=== PATIENT | female | born 1965 | race Caucasian/White ===

== ENCOUNTER 2017-06-24 14:40 | Emergency (ER) | payer OTHER ==
[~2017-06-24] VITALS: Ht 160 cm; Wt 63.6 kg
[~2017-06-24 14:40] MED LIST: MO4B PO; NEOM28.36 TP
[2017-06-24] MEDS ORDERED: LEVO25TA9 PO (15:10)
[2017-06-24] MEDS ORDERED: KETOROLAC TROMETHAMINE 30 MG/ML VIAL IM ONE (16:45)
[2017-06-24 17:24] LABS: BASOPHILS # (AUTO) 0.06 K/uL (0.00-0.20); BASOPHILS % (AUTO) 0.6 % (0.0-2.0); EOSINOPHILS # (AUTO) 0.04 K/uL (0.00-0.70); EOSINOPHILS % (AUTO) 0.45 % (1.0-6.0); HEMATOCRIT 38.4 % (36-46); LYMPHOCYTES # (AUTO) 2.2 K/uL (1.0-4.8); LYMPHOCYTES % (AUTO) 22.2 % (22.0-44.0); MEAN CORPUSCULAR HEMOGLOBIN 31.6 pg (26.0-34.0); MEAN CORPUSCULAR VOLUME 93 fL (80-100); MONOCYTES # (AUTO) 0.9 K/uL (0.1-1.0); MONOCYTES % (AUTO) 8.7 % (2.0-9.0); NEUTROPHILS # (AUTO) 6.7 K/uL (1.8-7.7); NEUTROPHILS % (AUTO) 68.1 % (40.0-70.0); PLATELET COUNT (AUTO) 279 K/uL (150-450); RED BLOOD CELL COUNT(AUTO) 4.13 MIL/uL (4.00-5.20); RED CELL DISTRIBUTION WIDTH 13.4 % (11.5-14.5); WHITE BLOOD COUNT (AUTO) 9.9 K/uL (4.5-11.0)
[2017-06-24 17:30] LABS: ANION GAP 8 mmol/L (8-16); CALCIUM, TOTAL 9.1 mg/dL (8.8-10.5); CARBON DIOXIDE 27 mmol/L (22-29); CHLORIDE 103 mmol/L (98-107); CREATININE 0.66 mg/dL (0.60-1.30); GLOMERULAR FILTR. RATE CALC > 60 mL/min (>60); POTASSIUM 3.7 mmol/L (3.5-5.1); SODIUM SERUM 138 mmol/L (136-145); UREA NITROGEN, BLOOD 13 mg/dL (7-18)
[2017-06-24 17:37] LABS: ALANINE AMINOTRANSFERASE 16 U/L (12-78); ALBUMIN 3.6 g/dL (3.4-5.0); ASPARTATE AMINOTRANSFERASE 18 U/L (15-37); BILIRUBIN,TOTAL 0.3 mg/dL (0.1-1.0); TOTAL PROTEIN, SERUM 7.5 g/dL (6.4-8.2)
[2017-06-24 17:52] VITALS: BP 118/63
== END 2017-06-24 18:36 | disposition home or self-care (01) ==
LOC: EMS 14:40
DX: M79.1 Myalgia (principal); M19.90 Unspecified osteoarthritis, unspecified site
CPT/HCPCS: 36415; 80053; 85025; 96372; 99284; J1885

== ENCOUNTER 2020-10-16 10:09 | Emergency (ER) | payer OTHER ==
[~2020-10-16] VITALS: Ht 165.1 cm; Wt 70.5 kg
[~2020-10-16 10:09] MED LIST changes: +IBUP-2276 PO; +LEVO25TA9 PO; -MO4B PO; -NEOM28.36 TP
[2020-10-16] MEDS ORDERED: SODIUM CHLORIDE 0.9% 1,000 ML IV ONE (11:15)
[2020-10-16 11:35] LABS: BASOPHILS % (AUTO) 0.4 % (0.0-2.0); EOSINOPHILS % (AUTO) 0.5 % (1.0-6.0); HEMATOCRIT 39.5 % (36-46); HEMOGLOBIN 13.4 g/dL (12.0-16.0); LYMPHOCYTES # (AUTO) 1.5 K/uL (1.0-4.8); LYMPHOCYTES % (AUTO) 20.8 % (22.0-44.0); MEAN CORPUSCULAR HEMOGLOBIN 31.6 pg (26.0-34.0); MEAN CORPUSCULAR HGB CONC 33.9 G/dL (31.0-37.0); MEAN CORPUSCULAR VOLUME 93 fL (80-100); MONOCYTES # (AUTO) 0.7 K/uL (0.1-1.0); MONOCYTES % (AUTO) 9.9 % (2.0-9.0); NEUTROPHILS % (AUTO) 68.4 % (40.0-70.0); PLATELET COUNT (AUTO) 334 K/uL (150-450); RED BLOOD CELL COUNT(AUTO) 4.23 MIL/uL (4.00-5.20); RED CELL DISTRIBUTION WIDTH 12.7 % (11.5-14.5)
[2020-10-16 11:45] LABS: D-DIMER 0.42 mg/L FEU (0.00-0.50); INR 0.9 (0.9-1.1); PROTHROMBIN TIME 10.1 SEC (9.4-11.6)
[2020-10-16] MEDS ORDERED: DOXYCYCLINE HYCLATE 100 MG TABLET PO ONE (12:15)
[2020-10-16 12:58] LABS: APPEARANCE,URINE CLEAR (CLEAR); BILIRUBIN,URINE NEGATIVE (NEGATIVE); GLUCOSE, URINE (UA) NEGATIVE (NEGATIVE); KETONES,URINE NEGATIVE (NEGATIVE); LEUKOCYTE ESTERASE ,URINE NEGATIVE (NEGATIVE); NITRATE,URINE NEGATIVE (NEGATIVE); OCCULT BLOOD,URINE NEGATIVE (NEGATIVE); PH,URINE 6.5 (5.0-8.0); PROTEIN,URINE NEGATIVE (NEGATIVE); UROBILINOGEN,URINE 0.2 mg/dL (<=1.0)
[2020-10-16 13:12] LABS: ANION GAP 11 mmol/L (8-16); CARBON DIOXIDE 26 mmol/L (22-29); CHLORIDE 98 mmol/L (98-107); GLOMERULAR FILTR. RATE CALC > 60 mL/min (>60); GLUCOSE,RANDOM 107 mg/dL (70-110); POTASSIUM 4.3 mmol/L (3.5-5.1); SODIUM SERUM 135 mmol/L (136-145); UREA NITROGEN, BLOOD 14 mg/dL (7-18)
[2020-10-16 13:30] VITALS: BP 128/64
[2020-10-16 13:40] LABS: ALANINE AMINOTRANSFERASE 21 U/L (12-78); ALBUMIN 3.4 g/dL (3.4-5.0); ALKALINE PHOSPHATASE 83 U/L (46-116); ASPARTATE AMINOTRANSFERASE 23 U/L (15-37); BILIRUBIN,TOTAL 0.4 mg/dL (0.1-1.0); C-REACTIVE PROTEIN QUANT 2.33 mg/dL (0.00-0.30); CREATINE KINASE, TOTAL ONLY 96 U/L (26-192); HCG,QUANTITATIVE 1 mIU/mL (0-6); LACTATE DEHYDROGENASE 253 U/L (81-234); TOTAL PROTEIN, SERUM 7.9 g/dL (6.4-8.2)
[2020-10-16 13:47] LABS: B-TYPE NATRIURETIC PEPTIDE 5 pg/mL (0-100)
== END 2020-10-16 14:13 | disposition home or self-care (01) ==
LOC: EMS 10:29
DX: U07.1 COVID-19 (principal); J12.82 Pneumonia due to coronavirus disease 2019
CPT/HCPCS: 83615; 85379; 86140; 93005; 96360; 36415-L1; 36415-TC; 71045-TC; 81003-TC

== ENCOUNTER 2023-08-12 15:44 | Emergency (ER) | payer OTHER ==
[~2023-08-12] VITALS: Ht 165.1 cm; Wt 77.3 kg
[~2023-08-12 15:44] MED LIST changes: +FLUD.1 PO; -IBUP-2276 PO; -LEVO25TA9 PO; +LEVO50 PO
[2023-08-12 15:57] VITALS: TEMP 98.3
[2023-08-12] MEDS ORDERED: LIDOCAINE 5% TRANSDERMAL PATCH TD ONE (18:30)
[2023-08-12] MEDS ORDERED: KETOROLAC TROMETHAMINE 30 MG/ML VIAL IM ONE (18:30)
[2023-08-12] MEDS ORDERED: BACLOFEN 10 MG TABLET PO ONE (18:30)
[2023-08-12] MEDS ORDERED: LEVO25TA9 PO (18:31)
[2023-08-12 19:00] VITALS: BP 113/76; PULSE 63; RESP 16
[2023-08-12] MEDS ORDERED: BACL10TA PO (20:18)
[2023-08-12] MEDS ORDERED: LIDO700A15 TP (20:19)
[2023-08-12] MEDS ORDERED: IBUP-1492 PO (20:20)
== END 2023-08-12 20:28 | disposition home or self-care (01) ==
LOC: EMS 15:45
DX: M54.50 Low back pain, unspecified (principal); E03.9 Hypothyroidism, unspecified
CPT/HCPCS: 99285; 72131; 96372; J1885

== ENCOUNTER 2023-10-13 10:42 | Emergency (ER) | payer OTHER ==
[~2023-10-13] VITALS: Ht 165.1 cm; Wt 72.7 kg
[~2023-10-13 10:42] MED LIST changes: +BACL10TA PO; -FLUD.1 PO; +IBUP-1492 PO; +LEVO25TA9 PO; -LEVO50 PO; +LIDO700A15 TP
[2023-10-13 10:49] VITALS: TEMP 98.3
[2023-10-13] MEDS ORDERED: METHOCARBAMOL 500 MG TABLET PO ONE (12:00)
[2023-10-13] MEDS ORDERED: KETOROLAC TROMETHAMINE 60 MG/2 ML VIAL IM ONE (12:00)
[2023-10-13] MEDS ORDERED: CEPH-558 PO (14:26)
[2023-10-13] MEDS ORDERED: METH-659 PO (14:32)
[2023-10-13] MEDS ORDERED: IBUP-1492 PO (14:32)
[2023-10-13 14:45] VITALS: BP 122/79; PULSE 67; RESP 16
== END 2023-10-13 15:03 | disposition home or self-care (01) ==
LOC: EMS 10:42
DX: M54.32 Sciatica, left side (principal); E03.9 Hypothyroidism, unspecified; Z98.890 Other specified postprocedural states
CPT/HCPCS: 99285; 93970; 96372; J1885